=== PATIENT | male | born 1965 | race Caucasian/White ===

== ENCOUNTER → 2024-11-10 07:12 | Outpatient (REF) | payer OTHER, SELFPAY | LOC: HWRCS 07:12 | PROVIDERS: ATTENDING PHYSICIAN Student in an Organized Health Care Education/Training Program; FAMILY PHYSICIAN Family Medicine | DX: R06.02 Shortness of breath (principal) | CPT/HCPCS: 93306 ==

== ENCOUNTER → 2024-11-18 08:00 | Outpatient (REF) | payer OTHER, SELFPAY | LOC: RCS 08:00 | PROVIDERS: ATTENDING PHYSICIAN Student in an Organized Health Care Education/Training Program; FAMILY PHYSICIAN Family Medicine | DX: R06.02 Shortness of breath (principal) | CPT/HCPCS: 93017; 93350 ==

== ENCOUNTER → 2024-11-24 08:35 | Outpatient (REF) | payer OTHER, SELFPAY | LOC: HWRAD 08:35 | PROVIDERS: ATTENDING PHYSICIAN Student in an Organized Health Care Education/Training Program; FAMILY PHYSICIAN Family Medicine | DX: R06.02 Shortness of breath (principal) | CPT/HCPCS: 75571 ==